=== PATIENT | female | born 1950 | race Two or more races ===

== ENCOUNTER 2021-01-04 06:25 | Day surgery (SDC) | payer OTHER ==
[~2021-01-04 06:25] MED LIST: ABILIFY5 MG PO; ATIVAN0.5 M1 PO; ATIVAN1 M1 PO; COZAAR25 MG PO; GLIPIZIDE ER5 MG PO; JANUMET XR 50-1 EAC1 PO; LEXAPR PO; LIPITOR40 M1 PO; RESTORIL PO; SUPER B-50 COM1 EACH PO; TYLENOL ARTHRI650 MG PO; WELLBUTRIN SR150 MG PO
[2021-01-04] MEDS ORDERED: MACROBID 100 M100 MG PO (10:59)
[2021-01-04] MEDS ORDERED: ULTRACET PO (11:00)
== END 2021-01-04 16:10 | disposition home or self-care (01) ==
LOC: CIR.AMB 06:25
PROVIDERS: ATTEND Obstetrics & Gynecology Gynecology
DX: N81.3 Complete uterovaginal prolapse (principal); Z20.822 Contact with and (suspected) exposure to COVID-19